=== PATIENT | male | born 1930 | race Two or more races ===

== ENCOUNTER 2018-03-12 13:14 | Outpatient (CLI) | payer OTHER | END 2018-03-12 15:43 | disposition home or self-care (01) | LOC: RAD 501 13:14 | DX: M25.561 Pain in right knee (principal) ==

== ENCOUNTER 2018-11-01 16:13 | Outpatient (CLI) | payer OTHER | END 2018-11-01 17:00 | disposition home or self-care (01) | LOC: NUCLEAR 16:13 | DX: I80.222 Phlebitis and thrombophlebitis of left popliteal vein (principal); I10 Essential (primary) hypertension ==

== ENCOUNTER 2020-10-19 12:13 | Outpatient (CLI) | payer OTHER | END 2020-10-19 12:23 | disposition HB | LOC: RAD 12:13 | DX: M25.862 Other specified joint disorders, left knee (principal); M25.562 Pain in left knee ==

== ENCOUNTER 2020-12-17 14:23 | Outpatient (CLI) | payer OTHER | END 2020-12-17 14:32 | disposition home or self-care (01) | LOC: NUCLEAR 14:23 | PROVIDERS: ATTEND Orthopaedic Surgery | DX: M81.0 Age-related osteoporosis without current pathological fracture (principal) ==